=== PATIENT | male | born 1955 | race Caucasian/White ===

== ENCOUNTER → 2016-12-19 | Outpatient (CLI) | payer BC ==
[~2016-12-19] VITALS: Ht 190.5 cm; Wt 95.3 kg
[~2016-12-19] MED LIST: ALEV220C2 PO; ASPI1TAB24 PO; BYST20TA2 PO; CLAR1TAB2 PO; CLON-412 PO; CRES5TAB PO; LIDOCAINE 2% INJ 100 MG/5 ML SDV (FOR ANES.) As Ordered ONE; NS 1,000 ML IV SCH; PRIL20CA9 PO; PROPOFOL 200 MG/20 ML VIAL As Ordered ONE; PROPOFOL 500 MG/50 ML VIAL As Ordered ONE; VITA500C24 PO
--- NOTE | 2016-12-19 11:38 | ROOR ---
Patient Name: Phil Caba Procedure Date: 12/19/2016 11:24 AM Date of : 1955 Age: 61 Room: [facility] Gender: Male Note Status: Finalized Procedure: Upper GI endoscopy Indications: Heartburn Providers: Roman Jones MD Referring MD: ABDON WARD JR, MD Requesting Provider: Medicines: Monitored Anesthesia Care Complications: No immediate complications. Procedure: Pre-Anesthesia Assessment: - The heart rate, respiratory rate, oxygen saturations, blood pressure, adequacy of pulmonary ventilation, and response to care were monitored throughout the procedure. The Endoscope was introduced through the mouth, and advanced to the second part of duodenum. The upper GI endoscopy was accomplished without difficulty. The patient tolerated the procedure well. Findings: The Z-line was regular and was found 40 cm from the incisors. A small hiatal hernia was present. No other significant abnormalities were identified in a careful examination of the stomach. The exam of the duodenum was otherwise normal. Impression: - Z-line regular, 40 cm from the incisors. - Small hiatal hernia. - No specimens collected. - The examination was otherwise normal. Recommendation: - Patient has a contact number available for emergencies. The signs and symptoms of potential delayed complications were discussed with the patient. Return to normal activities tomorrow. Written discharge instructions were provided to the patient. - High fiber diet. - Discharge patient to home. - Follow an antireflux regimen. - Continue present medications. - Return to referring physician. - The findings and recommendations were discussed with the patient's family. Roman Jones MD Roman Jones MD 12/19/2016 11:38:13 AM This report has been signed electronically. Number of Addenda: 0 Note Initiated On: 12/19/2016 11:24 AM Estimated Blood Loss: Estimated blood loss: none.
--- NOTE | 2016-12-19 11:50 | ROOR ---
Patient Name: Phil Caba Procedure Date: 12/19/2016 11:25 AM Date of : 1955 Age: 61 Room: [facility] Gender: Male Note Status: Finalized Procedure: Colonoscopy to Cecum Indications: High risk colon cancer surveillance: Personal history of colonic polyps, Last colonoscopy: 2013 Providers: Roman Jones MD Referring MD: ABDON WARD JR, MD Requesting Provider: Medicines: Monitored Anesthesia Care Complications: No immediate complications. Procedure: Pre-Anesthesia Assessment: - The heart rate, respiratory rate, oxygen saturations, blood pressure, adequacy of pulmonary ventilation, and response to care were monitored throughout the procedure. The Colonoscope was introduced through the anus and advanced to the cecum, identified by appendiceal orifice and ileocecal valve. The colonoscopy was performed without difficulty. The patient tolerated the procedure well. The quality of the bowel preparation was excellent. Findings: The perianal and digital rectal examinations were normal. Internal hemorrhoids were found during retroflexion. The hemorrhoids were small and Grade I (internal hemorrhoids that do not prolapse). The exam was otherwise without abnormality on direct and retroflexion views. Impression: - Internal hemorrhoids. - The examination was otherwise normal on direct and retroflexion views. - No specimens collected. - The exam was otherwise normal to the cecum. Recommendation: - Patient has a contact number available for emergencies. The signs and symptoms of potential delayed complications were discussed with the patient. Return to normal activities tomorrow. Written discharge instructions were provided to the patient. - Discharge patient to home. - Continue present medications. - Repeat colonoscopy in 5 years for surveillance. - Return to referring physician. - The findings and recommendations were discussed with the patient's family. Roman Jones MD Roman Jones MD 12/19/2016 11:49:45 AM This report has been signed electronically. Number of Addenda: 0 Note Initiated On: 12/19/2016 11:25 AM Estimated Blood Loss: Estimated blood loss: none.
[2016-12-19 12:05] VITALS: BP 134/78
== END | disposition home or self-care (01) ==
LOC: M OPP 10:20
PROVIDERS: ATTEND Internal Medicine Gastroenterology
DX: Z12.11 Encounter for screening for malignant neoplasm of colon (principal); Z86.010 Personal history of colon polyps; K64.0 First degree hemorrhoids; R12 Heartburn; K44.9 Diaphragmatic hernia without obstruction or gangrene; I10 Essential (primary) hypertension; M19.90 Unspecified osteoarthritis, unspecified site; K57.30 Diverticulosis of large intestine without perforation or abscess without bleeding; E78.5 Hyperlipidemia, unspecified; R06.83 Snoring; Z87.891 Personal history of nicotine dependence; Z79.899 Other long term (current) drug therapy; Z79.1 Long term (current) use of non-steroidal anti-inflammatories (NSAID)
CPT/HCPCS: 43235; 99156; 99157; G0105

== ENCOUNTER → 2018-04-15 | Outpatient (CLI) | payer BC | LOC: M WUC 09:20 | DX: M25.741 Osteophyte, right hand (principal) | CPT/HCPCS: 73140 ==

== ENCOUNTER → 2018-04-15 | Outpatient (REF) | payer BC | LOC: M LAB REF 12:23 | DX: S61.200A Unspecified open wound of right index finger without damage to nail, initial encounter (principal); W18.30XA Fall on same level, unspecified, initial encounter; Y92.009 Unspecified place in unspecified non-institutional (private) residence as the place of occurrence of the external cause | CPT/HCPCS: 87186 ==

== ENCOUNTER 2018-04-28 18:27 | Emergency (ER) | payer OTHER, BC ==
[2018-04-29] MEDS: cloNIDine 0.1 MG TAB PO (00:15)
[2018-04-29] MEDS: VITAMIN A & D OINTMENT 60 GM EXT (01:00)
== END 2018-04-29 01:08 | disposition home or self-care (01) ==
LOC: M ED 04-29 01:08
DX: T21.46XA Corrosion of unspecified degree of male genital region, initial encounter (principal); T53.91XA Toxic effect of unspecified halogen derivatives of aliphatic and aromatic hydrocarbons, accidental (unintentional), initial encounter; Y92.89 Other specified places as the place of occurrence of the external cause; E11.9 Type 2 diabetes mellitus without complications; I10 Essential (primary) hypertension; E78.5 Hyperlipidemia, unspecified; K21.9 Gastro-esophageal reflux disease without esophagitis; Z87.442 Personal history of urinary calculi; Z79.82 Long term (current) use of aspirin; Z79.899 Other long term (current) drug therapy; Z79.84 Long term (current) use of oral hypoglycemic drugs
CPT/HCPCS: 99283

== ENCOUNTER → 2018-05-02 | Outpatient (REF) | payer BC ==
[2018-05-02 13:18] LABS: APPEARANCE, URINE CLEAR (CLEAR); BACTERIA, URINE AUTO NEGATIVE (NEGATIVE); BILIRUBIN, URINE AUTO NEGATIVE (NEGATIVE); BLOOD, URINE BLOOD NEGATIVE (NEGATIVE); COLOR, URINE YELLOW (YELLOW); GLUCOSE, URINE (UA) AUTO NEGATIVE (NEGATIVE); KETONE, URINE AUTO NEGATIVE (NEGATIVE); LEUKOCYTE ESTERASE, URINE AUTO NEGATIVE (NEGATIVE); MUCUS, URINE SMALL (NEGATIVE); NITRITE, URINE AUTO NEGATIVE (NEGATIVE); PROTEIN, URINE AUTO NEGATIVE (NEGATIVE); RBC, URINE AUTO 0 /HPF (0-3); SPECIFIC GRAVITY URINE AUTO 1.024 (1.002-1.035); SQUAMOUS EPITHELIAL CELL UR AU 0 /HPF (0-6); UROBILINOGEN, URINE AUTO 0.2 mg/dL (0.0-2.0); WBC, URINE AUTO 1 /HPF (0-3)
== END ==
LOC: M SMT 12:52
DX: N48.9 Disorder of penis, unspecified (principal)
CPT/HCPCS: 81001

== ENCOUNTER → 2018-05-05 | Outpatient (REF) | payer BC | LOC: M LAB REF 10:04 | DX: R19.7 Diarrhea, unspecified (principal); N48.89 Other specified disorders of penis | CPT/HCPCS: 87529 ==

== ENCOUNTER → 2019-05-13 | Outpatient (REF) | payer BC ==
[~2019-05-13] MED LIST changes: +ASPI-161 PO; -ASPI1TAB24 PO; -LIDOCAINE 2% INJ 100 MG/5 ML SDV (FOR ANES.) As Ordered ONE; +METF750T PO; -NS 1,000 ML IV SCH; -PROPOFOL 200 MG/20 ML VIAL As Ordered ONE; -PROPOFOL 500 MG/50 ML VIAL As Ordered ONE; +ZYRT10CA5 PO; +[UNRECOGNIZED DRUG - OTHER] TOP
== END ==
LOC: M LAB REF 16:11
PROVIDERS: ATTEND Internal Medicine
DX: M25.542 Pain in joints of left hand (principal); M25.541 Pain in joints of right hand

== ENCOUNTER 2019-11-19 05:46 | Day surgery (SDC) | payer BC ==
[~2019-11-19] VITALS: Ht 190.5 cm; Wt 90.7 kg
[~2019-11-19 05:46] MED LIST changes: +CLAR10TA7 PO; -METF750T PO; +METF750T36 PO; +NAPR220C14 PO; +OMEP1CAP73 PO
[2019-11-19] MEDS ORDERED: LR 1,000 ML IV ONE (06:00)
[2019-11-19] MEDS ORDERED: LIDOCAINE 1% MDV 20ML VIAL SQ PRN (06:00)
[2019-11-19] MEDS ORDERED: BUPIVACAINE HCL 0.25% 30 ML VIAL As Ordered ONE (07:11)
[2019-11-19] MEDS ORDERED: fentaNYL 250 MCG/5 ML INJECTION (J3010) As Ordered ONE (07:15)
[2019-11-19] MEDS ORDERED: propofoL 200 MG/20 ML VIAL As Ordered ONE (07:15)
[2019-11-19] MEDS ORDERED: MIDAZOLAM INJ 2 MG/2 ML VIAL (J2250) As Ordered ONE (07:15)
[2019-11-19] MEDS ORDERED: ROCURONIUM BROMIDE 50 MG/5 ML VIAL As Ordered ONE ×2 (07:15→08:19)
[2019-11-19] MEDS ORDERED: LIDOCAINE 2% INJ 100 MG/5 ML SDV (FOR ANES.) As Ordered ONE (07:15)
[2019-11-19] MEDS ORDERED: dexameTHASONE 4 MG/ML 1ML VIAL (J1100) As Ordered ONE (07:48)
[2019-11-19] MEDS ORDERED: ePHEDrine SULFATE 25 MG/5 ML(5MG/ML) SYRINGE As Ordered ONE (08:04)
[2019-11-19] MEDS ORDERED: PHENYLephrine HCL 500 MCG/5 ML (100MCG/ML) SYRINGE (J2370) As Ordered ONE (08:04)
[2019-11-19] MEDS ORDERED: KETOROLAC 60 MG/2 ML VIAL (J1885) As Ordered ONE (08:11)
[2019-11-19] MEDS ORDERED: ACETAMINOPHEN 1000MG 100ML IV BTL (OFIRMEV) (J0131 PER 10MG) As Ordered ONE (08:11)
[2019-11-19] MEDS ORDERED: METOCLOPRAMIDE INJ 10MG/2ML VIAL (J2765) As Ordered ONE (08:11)
[2019-11-19] MEDS ORDERED: ONDANSETRON 4MG/2ML VIAL (J2405) As Ordered ONE (08:11)
[2019-11-19] MEDS ORDERED: NEOSTIGMINE 10 MG/10 ML VIAL (J2710) As Ordered ONE (08:52)
[2019-11-19] MEDS ORDERED: GLYCOPYRROLATE INJ 0.2 MG/ML 2 ML VIAL As Ordered ONE ×2 (08:52→09:20)
[2019-11-19] MEDS ORDERED: ONDANSETRON 4MG/2ML VIAL (J2405) IV PRN (09:45)
[2019-11-19] MEDS ORDERED: oxyCODONE 5MG TAB PO PRN (09:45)
[2019-11-19] MEDS ORDERED: LR 1,000 ML IV SCH (09:45)
[2019-11-19] MEDS ORDERED: fentaNYL 100 MCG/2 ML INJECTION (J3010) IV PRN (09:45)
[2019-11-19] MEDS ORDERED: ACETAMINOPHEN TAB 650MG DOSE (2X325MG) PO PRN (10:30)
[2019-11-19] MEDS ORDERED: NORCO, ANEXSIA 5/325MG TABLET (HYDROcodone/ACETAMINOPHEN) PO PRN (10:30)
[2019-11-19 11:25] VITALS: BP 189/90
--- NOTE | 2019-11-19 18:08 | RO ---
DATE OF PROCEDURE: 11/19/2019 PREOPERATIVE DIAGNOSIS: Left inguinal hernia. POSTOPERATIVE DIAGNOSIS: Direct left inguinal hernia. PROCEDURE PERFORMED: Robotic-assisted laparoscopic left inguinal herniorrhaphy with mesh. The mesh utilized was a Bard 3-D Max light mesh size large for the left side. This was reference code number [id number] and lot number [id number] SURGEON: Dr. Rm ANESTHESIA: General. INDICATIONS FOR PROCEDURE: The patient is a 64-year-old man who has developed a bulge in the left inguinal area. Examination confirmed a left inguinal hernia and he is now for a robotically assisted laparoscopic repair. OPERATIVE PROCEDURE: The patient was brought to the operating room and placed on the table in a supine position. He was placed under general endotracheal anesthesia. The patient's abdomen, groins and genitalia were prepped and draped in a sterile fashion. Three trocar sites were marked in the upper abdomen approximately 3 cm above the level of the umbilicus. Initially the midline trocar was placed. Local anesthesia was achieved at all sites with 0.25% Marcaine. A short transverse incision was made and a Veress needle was inserted. After positive hanging drop test the abdomen was insufflated with carbon dioxide gas. The 8 mm robotic port was placed over 5 mm scope and advanced through the abdominal wall without difficulty. Initial examination showed no significant adhesions within the abdomen. Liver appeared normal. Visualized portions of the small or large bowel appeared normal. A definite hernia defect was identified in the left lower quadrant. There was no evidence of hernia on the right. The two other trocars, one on the right and one on the left were then placed spaced approximately 10 cm for the midline. The depth of penetration of all trocars was adjusted. The patient was tilted into an approximately 14 degrees Trendelenburg position. The robot was then brought into position and docked to the camera port. The pelvis was targeted and the additional ports were then docked as well. A forced bipolar grasper was placed on the left and a cauterizing scissors on the right. I then moved to the control console to begin the procedure. A arcuate incision was made in the peritoneum beginning at the medial umbilical ligament on the left and extending transversely and then inferiorly toward the anterior-superior iliac spine. A flap was developed with a combination of sharp and blunt and cautery dissection. The hernia sac was in inverted into the abdomen intact. The structures of the spermatic cord were identified and there was no evidence of any indirect inguinal hernia sac. The inferior epigastric vessels were identified and preserved. Once the preperitoneal space was adequately developed a Bard 3-D Max light mesh large in size and form for the last was inserted into the abdomen. This was placed into the preperitoneal space. The scissor worsen were converted to a needle milligan and a 2-0 Vicryl suture was inserted and used to tack the mesh to the fascia medially and also to the anterior abdominal wall in the left upper corner of the mesh. At this point the abdominal pressure was reduced to 10 mmHg. A 2-0 V-Loc suture was inserted and began the closure of the peritoneal flap laterally. After closing the lateral half of the flap. The patient was returned to a flat position and the intra-abdominal pressure was reduced to 5 mmHg. The closure of the peritoneal flap proceeded without difficulty. The instruments were then removed and the robot was undocked any remaining intra-abdominal gas was then released and the trocars were removed. I injected some additional 0.25% Marcaine around each of the trocar sites. The incisions were closed with buried 4-0 Vicryl sutures and Steri-Strips. Light dressings were applied. The patient tolerated the procedure well without apparent complication. He was awakened in the operating room, extubated and moved to the recovery room in stable condition.
== END 2019-11-19 11:50 | disposition home or self-care (01) ==
LOC: M SDC 05:46
PROVIDERS: ATTEND Surgery
DX: K40.90 Unilateral inguinal hernia, without obstruction or gangrene, not specified as recurrent (principal); E11.9 Type 2 diabetes mellitus without complications; I10 Essential (primary) hypertension; E78.5 Hyperlipidemia, unspecified; K21.9 Gastro-esophageal reflux disease without esophagitis; Z87.891 Personal history of nicotine dependence; Z79.82 Long term (current) use of aspirin; Z79.84 Long term (current) use of oral hypoglycemic drugs; Z79.899 Other long term (current) drug therapy
CPT/HCPCS: 49650; C1781; J0131; J1100; J1885; J2250; J2370; J2405; J2710; J2765; J3010

== ENCOUNTER → 2020-12-07 | Outpatient (CLI) | payer SELFPAY ==
[~2020-12-07] MED LIST changes: +VITS5OIN TOP; -[UNRECOGNIZED DRUG - OTHER] TOP
== END ==
LOC: M LABSMTC 13:34
PROVIDERS: ATTEND Pediatrics
DX: Z20.822 Contact with and (suspected) exposure to COVID-19 (principal)

== ENCOUNTER → 2021-01-03 | Outpatient (CLI) | payer SELFPAY | LOC: M LABSMTC 09:32 | PROVIDERS: ATTEND Pediatrics | DX: Z11.52 Encounter for screening for COVID-19 (principal) ==

== ENCOUNTER → 2021-05-18 | Outpatient (CLI) | payer MEDICARE | LOC: M LABSMTC 10:29 | PROVIDERS: ATTEND Anesthesiology | DX: Z11.52 Encounter for screening for COVID-19 (principal) ==

== ENCOUNTER 2021-05-22 12:04 | Day surgery (SDC) | payer MEDICARE ==
[~2021-05-22] VITALS: Ht 190.5 cm; Wt 85.3 kg
[~2021-05-22 12:04] MED LIST changes: +NS 1,000 ML IV SCH
[2021-05-22] MEDS ORDERED: propofoL 200 MG/20 ML VIAL As Ordered ONE ×2 (13:41→13:58)
[2021-05-22] MEDS ORDERED: LIDOCAINE 2% 100MG/5ML SDV (FOR ANES.) As Ordered ONE (13:41)
[2021-05-22] MEDS ORDERED: fentaNYL 100 MCG/2 ML INJECTION (J3010) As Ordered ONE (13:41)
--- NOTE | 2021-05-22 14:05 | ROOR ---
Patient Name: Phil Caba Procedure Date: 05/22/2021 1:49 PM Date of : 1955 Age: 65 Room: [facility] Gender: Male Note Status: Finalized Procedure: Upper GI endoscopy + endoloop Indications: Heartburn, Exclusion of Gutiérrez's esophagus Providers: Roman Jones MD Referring MD: ABDON WARD JR, MD Requesting Provider: Medicines: Monitored Anesthesia Care Complications: No immediate complications. Procedure: Pre-Anesthesia Assessment: - The heart rate, respiratory rate, oxygen saturations, blood pressure, adequacy of pulmonary ventilation, and response to care were monitored throughout the procedure. The Endoscope was introduced through the mouth, and advanced to the second part of duodenum. The upper GI endoscopy was accomplished without difficulty. The patient tolerated the procedure well. Findings: The Z-line was regular and was found 40 cm from the incisors. One medium pedunculated polyp with no stigmata of recent bleeding was found on the greater curvature of the stomach. One ligature was successfully placed. The exam of the duodenum was otherwise normal. Impression: - Z-line regular, 40 cm from the incisors. - One gastric polyp. Ligated. - No specimens collected. - The examination was otherwise normal. Recommendation: - Patient has a contact number available for emergencies. The signs and symptoms of potential delayed complications were discussed with the patient. Return to normal activities tomorrow. Written discharge instructions were provided to the patient. - Discharge patient to home. - Follow an antireflux regimen. - Continue present medications. - Return to referring physician. - The findings and recommendations were discussed with the patient's family. Procedure Code(s): --- Professional --- 52641, Esophagogastroduodenoscopy, flexible, transoral; diagnostic, including collection of specimen(s) by brushing or washing, when performed (separate procedure) Diagnosis Code(s): --- Professional --- K31.7, Polyp of stomach and duodenum R12, Heartburn CPT copyright 2019 [employer]. All rights reserved. The codes documented in this report are preliminary and upon orthopedic coder review may be revised to meet current compliance requirements. Roman Jones MD Roman Jones MD 05/22/2021 2:04:47 PM Electronically signed by Roman Jones MD Number of Addenda: 0 Note Initiated On: 05/22/2021 1:49 PM Estimated Blood Loss: Estimated blood loss: none.
--- NOTE | 2021-05-22 14:20 | ROOR ---
Patient Name: Phil Caba Procedure Date: 05/22/2021 1:49 PM Date of : 1955 Age: 65 Room: [facility] Gender: Male Note Status: Finalized Procedure: Total Colonoscopy to Cecum + ileoscopy + Bx Indications: Lower abdominal pain, Change in bowel habits Providers: Roman Jones MD Referring MD: ABDON WARD JR, MD Requesting Provider: Medicines: Monitored Anesthesia Care Complications: No immediate complications. Procedure: Pre-Anesthesia Assessment: - The heart rate, respiratory rate, oxygen saturations, blood pressure, adequacy of pulmonary ventilation, and response to care were monitored throughout the procedure. The Colonoscope was introduced through the anus and advanced to the cecum, identified by appendiceal orifice and ileocecal valve. The colonoscopy was performed without difficulty. The patient tolerated the procedure well. The quality of the bowel preparation was excellent. Findings: The perianal and digital rectal examinations were normal. Non-bleeding internal hemorrhoids were found during retroflexion. The hemorrhoids were medium-sized and Grade I (internal hemorrhoids that do not prolapse). Two sessile polyps were found at 40 cm proximal to the anus. The polyps were diminutive in size. These polyps were removed with a cold biopsy forceps. Resection and retrieval were complete. The terminal ileum appeared normal. Biopsies for histology were taken with a cold forceps from the ascending colon, transverse colon, descending colon and rectosigmoid colon for evaluation of microscopic colitis. The exam was otherwise without abnormality. Impression: - Non-bleeding internal hemorrhoids. - Two diminutive polyps at 40 cm proximal to the anus, removed with a cold biopsy forceps. Resected and retrieved. - The examined portion of the ileum was normal. - The examination was otherwise normal. - Biopsies were taken with a cold forceps from the ascending colon, transverse colon, descending colon and rectosigmoid colon for evaluation of microscopic colitis. - The exam was otherwise normal to the cecum. Recommendation: - Patient has a contact number available for emergencies. The signs and symptoms of potential delayed complications were discussed with the patient. Return to normal activities tomorrow. Written discharge instructions were provided to the patient. - High fiber diet. - Discharge patient to home. - Continue present medications. - Await pathology results. - Repeat colonoscopy in 10 years for screening purposes. - Return to referring physician. - Telephone GI clinic for pathology results in 1 week. - The findings and recommendations were discussed with the patient's family. Procedure Code(s): --- Professional --- 61906, Colonoscopy, flexible; with biopsy, single or multiple Diagnosis Code(s): --- Professional --- K64.0, First degree hemorrhoids K63.5, Polyp of colon R10.30, Lower abdominal pain, unspecified R19.4, Change in bowel habit CPT copyright 2019 [employer]. All rights reserved. The codes documented in this report are preliminary and upon product engineering manager review may be revised to meet current compliance requirements. Roman Jones MD Roman Jones MD 05/22/2021 2:20:03 PM Electronically signed by Roman Jones MD Number of Addenda: 0 Note Initiated On: 05/22/2021 1:49 PM Estimated Blood Loss: Estimated blood loss: none.
[2021-05-22 14:43] VITALS: BP 159/83
== END 2021-05-22 14:44 | disposition home or self-care (01) ==
LOC: M OPP 12:04
PROVIDERS: ATTEND Internal Medicine Gastroenterology
DX: D12.6 Benign neoplasm of colon, unspecified (principal); K64.0 First degree hemorrhoids; R10.30 Lower abdominal pain, unspecified; R19.4 Change in bowel habit; K31.7 Polyp of stomach and duodenum; R12 Heartburn; Z79.82 Long term (current) use of aspirin; Z79.84 Long term (current) use of oral hypoglycemic drugs; Z79.899 Other long term (current) drug therapy; Z87.891 Personal history of nicotine dependence
CPT/HCPCS: 43235; 45380; 88305; J3010

== ENCOUNTER → 2021-08-23 | Outpatient (CLI) | payer MEDICARE ==
[~2021-08-23] MED LIST changes: -NS 1,000 ML IV SCH
--- NOTE | 2021-08-23 09:06 | REP ---
INDICATION: SOB COMPARISON: 05/20/2007 TECHNIQUE: PA and lateral. FINDINGS: The mediastinum and cardiac silhouette are normal. The lung gomez are clear and without acute consolidation, effusion, or pneumothorax. The skeletal structures are intact and normal. IMPRESSION: No acute cardiopulmonary process. <Electronically signed by Omer Gibbs > 08/23/21 0902
== END ==
LOC: M WUC 08:42
PROVIDERS: ATTEND Internal Medicine
DX: R06.02 Shortness of breath (principal)

== ENCOUNTER → 2021-09-13 | Outpatient (REF) | payer MEDICARE | LOC: M LAB REF 11:12 | PROVIDERS: ATTEND Internal Medicine | DX: M31.6 Other giant cell arteritis (principal) ==

== ENCOUNTER → 2021-11-10 | Outpatient (REF) | LOC: M LABSMTC 10:05 | PROVIDERS: ATTEND Pediatrics | DX: Z20.822 Contact with and (suspected) exposure to COVID-19 (principal) ==

== ENCOUNTER → 2022-02-06 | Outpatient (CLI) | payer MEDICARE | LOC: M WUC 09:10 | PROVIDERS: ATTEND Internal Medicine | DX: J32.9 Chronic sinusitis, unspecified (principal) ==

== ENCOUNTER → 2022-07-09 | Outpatient (CLI) | payer MEDICARE | LOC: M WUC 08:32 | PROVIDERS: ATTEND Physician Assistant Medical | DX: M47.812 Spondylosis without myelopathy or radiculopathy, cervical region (principal); M99.61 Osseous and subluxation stenosis of intervertebral foramina of cervical region ==

== ENCOUNTER → 2022-10-25 | Outpatient (CLI) | payer MEDICARE | LOC: M RAD 10:53 | PROVIDERS: ATTEND Physician Assistant | DX: J32.8 Other chronic sinusitis (principal) ==

== ENCOUNTER → 2024-02-20 | Outpatient (CLI) | payer OTHER, MEDICARE ==
[~2024-02-20] MED LIST changes: -ASPI-161 PO; +ASPI-615 PO; +BYST1TAB PO; -BYST20TA2 PO
[2024-02-20 11:31] LABS: PLATELET COUNT, AUTOMATED 294 10^3/uL (150-450)
[2024-02-20 12:08] LABS: PARTIAL THROMBOPLASTIN TIME 29.4 SECONDS (24.8-34.2); PROTHROMBIN TIME 12.9 SECONDS (12.5-14.5)
== END ==
LOC: M LAB 08:53
PROVIDERS: ATTEND Physician Assistant
DX: Z01.818 Encounter for other preprocedural examination (principal)

== ENCOUNTER 2025-08-20 20:06 | Emergency (ER) | payer MEDICARE, OTHER ==
[~2025-08-20] VITALS: Ht 190.5 cm; Wt 93.3 kg
[2025-08-20] MEDS: NITROGLYCERIN 0.4 MG SUBL TABLET SL PRN (20:28)
[2025-08-20 20:29] LABS: BASO # 0.1 10^3/uL (0.0-0.2); BASO % 0.9 % (0.0-1.0); EOS # 0.2 10^3/uL (0.0-0.5); EOS % 2.6 % (0.0-3.0); LYMPH # 3.7 10^3/uL (1.5-5.0); LYMPH % 42.8 % (24.0-44.0); MONO # 0.9 10^3/uL (0.0-0.8); MONO % 10.9 % (2.0-8.0); NEUTROPHILS # 3.6 10^3/uL (1.5-8.5); NEUTROPHILS % 42.3 % (36.0-66.0); PLATELET COUNT, AUTOMATED 367 10^3/uL (150-450)
[2025-08-20] MEDS: TENECTEPLASE 50 MG/10 ML VIAL IV STA (20:46)
[2025-08-20] MEDS: CLOPIDOGREL 300 MG TAB PO ONE (20:48)
[2025-08-20] MEDS: HEPARIN SOD 5000 UNITS/ML 1 ML VIAL/SYRINGE IV ONE (20:50)
[2025-08-20] MEDS: HEPARIN DRIP 25,000 UNITS in IV 1 EA IV SCH (20:51)
[2025-08-20 21:04] LABS: CK-MB VALUE MASS 1.3 NG/ML (<3.6)
[2025-08-20 21:07] LABS: ALT/SGPT 17.0 U/L (7.0-40); AST/SGOT 12.0 U/L (<34); CALCIUM LEVEL 9.5 MG/DL (8.3-10.6); CARBON DIOXIDE LEVEL 28.0 MMOL/L (20-31); CHLORIDE LEVEL 99.0 MMOL/L (98-107); CPK CREATINE PHOSPHOKINASE 44.0 U/L (46-171); CREATININE FOR GFR 1.12 MG/DL (0.70-1.30); GLOMERULAR FILTRATION RATE 70.2 (>42); MB/CK RELATIVE INDEX 2.95 (< OR =4); POTASSIUM SERUM 4.4 MMOL/L (3.5-5.1); SODIUM LEVEL 138.0 MMOL/L (136-145)
[2025-08-20 21:09] LABS: FREE T4 1.31 NG/DL (0.89-1.76)
[2025-08-20 21:15] VITALS: BP 152/88; TEMP 98.1; O2SAT 97
== END 2025-08-20 21:19 | disposition short-term general hospital (02) ==
LOC: M ED 20:06
DX: I21.3 ST elevation (STEMI) myocardial infarction of unspecified site (principal); E11.9 Type 2 diabetes mellitus without complications; I10 Essential (primary) hypertension; E78.5 Hyperlipidemia, unspecified; Z98.890 Other specified postprocedural states; Z79.84 Long term (current) use of oral hypoglycemic drugs; Z79.899 Other long term (current) drug therapy; R91.8 Other nonspecific abnormal finding of lung field
CPT/HCPCS: 71045; 80047; 80048; 80076; 82550; 82553; 83690; 83880; 84439; 84443; 84484; 85025; 85730; 93005; 93041; 94760; 96374; 96375; 99291; J3101

== ENCOUNTER 2025-09-11 23:57 | Emergency (ER) | payer MEDICARE ==
[~2025-09-11] VITALS: Ht 190.5 cm; Wt 85.6 kg
[2025-09-12 00:26] LABS: BASO # 0.1 10^3/uL (0.0-0.2); BASO % 1.2 % (0.0-1.0); EOS # 0.2 10^3/uL (0.0-0.5); EOS % 2.6 % (0.0-3.0); LYMPH # 1.6 10^3/uL (1.5-5.0); LYMPH % 26.4 % (24.0-44.0); MONO # 0.8 10^3/uL (0.0-0.8); MONO % 12.7 % (2.0-8.0); NEUTROPHILS # 3.4 10^3/uL (1.5-8.5); NEUTROPHILS % 56.8 % (36.0-66.0); PLATELET COUNT, AUTOMATED 304 10^3/uL (150-450)
[2025-09-12 00:51] LABS: ALT/SGPT 17.0 U/L (7.0-40); AST/SGOT 43.0 U/L (<34); CALCIUM LEVEL 10.2 MG/DL (8.3-10.6); CARBON DIOXIDE LEVEL 26.0 MMOL/L (20-31); CHLORIDE LEVEL 103.0 MMOL/L (98-107); CK-MB VALUE MASS 1.4 NG/ML (<3.6); CPK CREATINE PHOSPHOKINASE 47.0 U/L (46-171); CREATININE FOR GFR 1.03 MG/DL (0.70-1.30); GLOMERULAR FILTRATION RATE 77.7 (>42); MB/CK RELATIVE INDEX 2.97 (< OR =4); POTASSIUM SERUM 5.2 MMOL/L (3.5-5.1); SODIUM LEVEL 141.0 MMOL/L (136-145)
[2025-09-12 01:23] LABS: INR 0.95
[2025-09-12 01:28] LABS: CK-MB VALUE MASS 1.2 NG/ML (<3.6); CPK CREATINE PHOSPHOKINASE 30.0 U/L (46-171); MB/CK RELATIVE INDEX 4.0 (< OR =4)
[2025-09-12 01:36] VITALS: BP 154/73
[2025-09-12] MEDS: NITROGLYCERIN 2% OINT 1 GM *U/D* PKT TOP ONE (01:36)
[2025-09-12] MEDS: MORPHINE 4 MG/ML 1 ML VIAL IV PRN (01:37)
[2025-09-12] MEDS ORDERED: ISOVUE-370 76% 100 ML VIAL As Ordered ONE (02:10)
[2025-09-12] MEDS ORDERED: HEPARIN SOD 5000 UNITS/ML 1 ML VIAL/SYRINGE IV PRN (04:20)
[2025-09-12 05:07] LABS: PLATELET COUNT, AUTOMATED 273 10^3/uL (150-450)
[2025-09-12] MEDS: HEPARIN DRIP 25,000 UNITS in IV 1 EA IV SCH (05:46)
[2025-09-12 06:45] VITALS: BP 145/67; TEMP 98; O2SAT 97
== END 2025-09-12 07:01 | disposition short-term general hospital (02) ==
LOC: M ED 23:57
DX: I20.0 Unstable angina (principal); I25.2 Old myocardial infarction; E11.9 Type 2 diabetes mellitus without complications; I10 Essential (primary) hypertension; E78.5 Hyperlipidemia, unspecified; K21.9 Gastro-esophageal reflux disease without esophagitis; Z98.61 Coronary angioplasty status; Z79.82 Long term (current) use of aspirin; Z79.84 Long term (current) use of oral hypoglycemic drugs; Z79.899 Other long term (current) drug therapy
CPT/HCPCS: 71045; 71275; 80048; 80076; 82550; 82553; 83690; 84484; 85025; 85027; 85610; 85730; 93005; 93041; 94760; 96374; 96375; 99285; Q9967

== ENCOUNTER → 2025-10-05 | Outpatient (CLI) | payer MEDICARE | LOC: M LAB 08:01 | PROVIDERS: ATTEND Nurse Practitioner Family | DX: I25.10 Atherosclerotic heart disease of native coronary artery without angina pectoris (principal) ==

== ENCOUNTER → 2025-10-05 | Outpatient (CLI) | payer MEDICARE | LOC: M RAD 08:07 | PROVIDERS: ATTEND Nurse Practitioner Family | DX: I25.10 Atherosclerotic heart disease of native coronary artery without angina pectoris (principal) ==

== ENCOUNTER → 2025-10-20 | Outpatient (REF) | payer MEDICARE ==
[~2025-10-20] MED LIST changes: +ADVA1AER10 INH; +CARV25TA PO; +CLOP75TA2 PO; +ENTR1TAB PO; +GLIM2TAB4 PO; +JARD1TAB PO; +MONT10TA97 PO; +MULTTAB61 PO; +PANT40TA29 PO; +ROSU20TA86 PO; +SPIR-10 PO; +VENTAER INH
[2025-10-20 19:10] LABS: IRON (FE) 72.0 UG/DL (65-175); PERCENT SATURATION 17.6 % (19.7-50.0)
== END ==
LOC: M LAB REF 17:34
PROVIDERS: ATTEND Internal Medicine
DX: R10.13 Epigastric pain (principal); R53.83 Other fatigue; E11.9 Type 2 diabetes mellitus without complications; R94.5 Abnormal results of liver function studies

== ENCOUNTER 2025-10-27 10:08 | Emergency (ER) | payer MEDICARE ==
[~2025-10-27] VITALS: Ht 190.5 cm; Wt 86.5 kg
[~2025-10-27 10:08] MED LIST changes: -ADVA1AER10 INH; -CARV25TA PO; -CLOP75TA2 PO; -ENTR1TAB PO; -GLIM2TAB4 PO; -JARD1TAB PO; -MONT10TA97 PO; -MULTTAB61 PO; -PANT40TA29 PO; -ROSU20TA86 PO; -SPIR-10 PO; -VENTAER INH
[2025-10-27] MEDS: ASPIRIN 81 MG CHEWABLE TABLET PO ONE (10:45)
[2025-10-27] MEDS: NITROGLYCERIN 0.4 MG SUBL TABLET SL PRN (10:46)
[2025-10-27 10:52] LABS: BASO # 0.0 10^3/uL (0.0-0.2); BASO % 0.5 % (0.0-1.0); EOS # 0.1 10^3/uL (0.0-0.5); EOS % 1.8 % (0.0-3.0); LYMPH # 0.9 10^3/uL (1.5-5.0); LYMPH % 16.9 % (24.0-44.0); MONO # 0.5 10^3/uL (0.0-0.8); MONO % 8.5 % (2.0-8.0); NEUTROPHILS # 4.0 10^3/uL (1.5-8.5); NEUTROPHILS % 72.1 % (36.0-66.0); PLATELET COUNT, AUTOMATED 255 10^3/uL (150-450)
[2025-10-27 11:19] LABS: ALT/SGPT 16.0 U/L (7.0-40); AST/SGOT 14.0 U/L (<34); CALCIUM LEVEL 9.7 MG/DL (8.3-10.6); CARBON DIOXIDE LEVEL 28.0 MMOL/L (20-31); CHLORIDE LEVEL 99.0 MMOL/L (98-107); CK-MB VALUE MASS 1.2 NG/ML (<3.6); CPK CREATINE PHOSPHOKINASE 30.0 U/L (46-171); CREATININE FOR GFR 0.95 MG/DL (0.70-1.30); GLOMERULAR FILTRATION RATE 85.6 (>42); MB/CK RELATIVE INDEX 4.0 (< OR =4); POTASSIUM SERUM 4.2 MMOL/L (3.5-5.1); SODIUM LEVEL 136.0 MMOL/L (136-145)
[2025-10-27 11:22] LABS: FREE T4 1.21 NG/DL (0.89-1.76)
[2025-10-27 11:28] LABS: INR 1.03
[2025-10-27 12:58] LABS: CK-MB VALUE MASS 1.3 NG/ML (<3.6)
[2025-10-27 12:59] LABS: CPK CREATINE PHOSPHOKINASE 26.0 U/L (46-171); MB/CK RELATIVE INDEX 5.0 (< OR =4)
[2025-10-27] MEDS ORDERED: ISOVUE-370 76% 100 ML VIAL As Ordered ONE (13:01)
[2025-10-27] MEDS: HEPARIN DRIP 25,000 UNITS in IV 1 EA IV SCH (14:19)
[2025-10-27] MEDS: HEPARIN SOD 5000 UNITS/ML 1 ML VIAL/SYRINGE IV ONE (14:19)
[2025-10-27 14:21] VITALS: BP 173/79
[2025-10-27] MEDS: NITROGLYCERIN 2% OINT 1 GM *U/D* PKT TOP ONE (14:21)
[2025-10-27 14:42] LABS: CK-MB VALUE MASS 1.0 NG/ML (<3.6)
[2025-10-27 14:43] LABS: CPK CREATINE PHOSPHOKINASE 26.0 U/L (46-171); MB/CK RELATIVE INDEX 3.84 (< OR =4)
[2025-10-27] MEDS ORDERED: MULTTAB61 PO (14:50)
[2025-10-27] MEDS ORDERED: GLIM2TAB4 PO (14:50)
[2025-10-27] MEDS ORDERED: ADVA1AER10 INH (14:50)
[2025-10-27] MEDS ORDERED: ROSU20TA86 PO (14:50)
[2025-10-27] MEDS ORDERED: ENTR1TAB PO (14:50)
[2025-10-27] MEDS ORDERED: JARD1TAB PO (14:50)
[2025-10-27] MEDS ORDERED: PANT40TA29 PO (14:50)
[2025-10-27] MEDS ORDERED: CLOP75TA2 PO (14:50)
[2025-10-27] MEDS ORDERED: CARV25TA PO (14:50)
[2025-10-27] MEDS ORDERED: VENTAER INH (14:50)
[2025-10-27] MEDS ORDERED: MONT10TA97 PO (14:50)
[2025-10-27] MEDS ORDERED: SPIR-10 PO (14:50)
[2025-10-27] MEDS ORDERED: HOME MED LIST COMPLETE! XX SCH (14:55)
[2025-10-28 04:54] LABS: INR 1.06
[2025-10-28 06:00] VITALS: BP 113/56
[2025-10-28 06:15] VITALS: O2SAT 96
[2025-10-28 06:28] VITALS: TEMP 98.9
== END 2025-10-28 06:30 | disposition short-term general hospital (02) ==
LOC: M ED 10:57
DX: I24.9 Acute ischemic heart disease, unspecified (principal); I25.10 Atherosclerotic heart disease of native coronary artery without angina pectoris; I25.2 Old myocardial infarction; I10 Essential (primary) hypertension; E78.5 Hyperlipidemia, unspecified; E11.9 Type 2 diabetes mellitus without complications; Z98.61 Coronary angioplasty status; Z79.82 Long term (current) use of aspirin; Z79.84 Long term (current) use of oral hypoglycemic drugs; Z79.899 Other long term (current) drug therapy
CPT/HCPCS: 71045; 71275; 80048; 80076; 82550; 82553; 83690; 83880; 84439; 84443; 84484; 85025; 85610; 85730; 93005; 93041; 94760; 96365; 96366; 99285; Q9967